=== PATIENT | male | born 1955 | race Hispanic/Latino ===

== ENCOUNTER 2016-10-20 07:54 | Day surgery (SDC) | payer OTHER ==
[2016-10-20 08:38] VITALS: BMI 26.6
[2016-10-20] MEDS ORDERED: Propofol 10 mg/ml Inj (20 ML) ONE ×2 (11:25)
[2016-10-20] MEDS ORDERED: Lactated Ringer's 500 ML IV ONE (11:28)
[2016-10-20 12:51] VITALS: TEMP 97.8
[2016-10-20 13:10] VITALS: BP 99/62; PULSE 54; RESP 10; O2SAT 99
== END 2016-10-20 13:05 | disposition home or self-care (01) ==
LOC: C.ENDO 07:54
PROVIDERS: ATTEND Internal Medicine Gastroenterology
DX: Z12.11 Encounter for screening for malignant neoplasm of colon (principal); K57.90 Diverticulosis of intestine, part unspecified, without perforation or abscess without bleeding; D12.3 Benign neoplasm of transverse colon; K64.8 Other hemorrhoids
CPT/HCPCS: 45380; 88305; J2704; J3010; J7120